=== PATIENT | female | born 1950 ===

== ENCOUNTER 2018-03-06 02:18 | Day surgery (SDC) | payer MEDICARE, BC ==
[~2018-03-06] VITALS: Ht 162.6 cm; Wt 82.1 kg
[~2018-03-06 02:18] MED LIST: ACET500T68 PO; ESOM40CA42 PO; LEVO-3 PO; OLME40TA28 PO
[2018-03-06 08:37] VITALS: BP 151/81
[2018-03-06] MEDS ORDERED: MIDAZOLAM 2 MG/2 ML VIAL IVP PRN (08:40)
[2018-03-06] MEDS ORDERED: NORMOSOL R SOLN(*) 1000 ML BAG 1,000 ML IV PRN (08:40)
[2018-03-06] MEDS ORDERED: ceFAZolin(*) 2GM/D5W 50ML 50 ML IVPB ONE (08:40)
[2018-03-06] MEDS ORDERED: LIDOCAINE/SOD BICARB 8.4% SYR ID ONE (08:40)
[2018-03-06] MEDS ORDERED: ROPIVACAINE 0.2% 400 MG/200ML 250 ML CONINFUS ONE (08:40)
[2018-03-06] MEDS ORDERED: KETAMINE HCL-NS 50 MG/5 ML SYR ONE (08:47)
[2018-03-06] MEDS ORDERED: fentaNYL CITR 100 MCG/2 ML AMP ONE ×3 (08:47→11:10)
[2018-03-06] MEDS ORDERED: LIDOCAINE MPF 1% 5 ML VIAL ONE (08:48)
[2018-03-06] MEDS ORDERED: PROPOFOL EMUL(*) 10MG/ML 20 ML 20 ML ONE (08:48)
[2018-03-06] MEDS ORDERED: DEXAMETHASONE SOD PHOS 10MG/ML ONE (08:48)
[2018-03-06] MEDS ORDERED: ONDANSETRON 4 MG/2 ML VIAL ONE (08:48)
[2018-03-06] MEDS ORDERED: BUPIV/EPI 0.25% 1:200,000 50ML INFIL ONE (08:53)
[2018-03-06] MEDS ORDERED: ROPIVACAINE 0.2% 20 ML VIAL ONE (09:08)
[2018-03-06] MEDS ORDERED: BACITRACIN OINT 15 GM TUBE TP ONE (09:08)
[2018-03-06] MEDS ORDERED: HYDROmorphone HCL 2 MG/ML SDV ONE (11:34)
--- NOTE | 2018-03-06 11:39 | OPERATIVE REPORT 1 ---
EVENT DATE: March 06, 2018 SURGEON: Shiva Awad MD BLENDING LINE ATTENDANT: Wale Garza PA-C ANESTHESIOLOGIST: Fabricio Hampton MD ANESTHESIA: General. PREOPERATIVE DIAGNOSIS Right distal tibia intraarticular fracture. POSTOPERATIVE DIAGNOSIS Right distal tibia intraarticular fracture. PROCEDURE PERFORMED Open reduction and internal fixation distal tibia fracture. ESTIMATED BLOOD LOSS Minimal. FLUIDS Minimal. DESCRIPTION OF PROCEDURE The patient was brought to the operating room and placed in supine position. A bump was placed under the right hip to align the right lower extremity. She was prepped and draped in the normal sterile fashion using Prevail. Sterile stockinettes and U-drape were placed on the lower extremity. Stockinette was incised from the above the knee and held with Coban. Esmarch was then used to exsanguinate the lower extremity and tourniquet turned up to 300 mmHg. An incision was made directly anterior lateral just in front of the syndesmosis and just superior to the ankle joint. Skin was incised down to the subcutaneous tissue. The subcutaneous tissue was bluntly dissected making sure that the lateral branch of the superficial peroneal nerve was protected, which it was. Then we bluntly dissected all the way down to the bone. At this point, I could get directly into the fracture. I was able to place a lamina head start teacher, open up the fracture, and there was a large piece, inter-middle piece that had no cartilage to it that was blocking. We were able to pull that out. From here, I opened up the fracture, cleaned out top to bottom of the fracture, going directly into the joint. I could visualize the joint. I could visualize the cartilage. I then placed a large two-point reduction clamp going from behind the peroneal tendons, making a small sharp incision, going all the way down to bone and clamping this down. Watching directly at the joint and watching the fracture site, we were able to reduce it almost anatomically. Once I had that in place, I brought in fluoroscopy, AP and lateral and found to have excellent alignment. I then placed from that same incision two screws going anterior to posterior in a lag manner using 3.5, 2.5 lag drill, both of them 38 Synthes stainless steel screws. Once we had them in, we had great compression. I took the clamp off. No change in position. I checked with fluoroscopy, AP and lateral and had excellent position of the screws, excellent position of the fracture. At this point, we then stressed the syndesmosis, found that there was absolutely no ligament laxity in the syndesmosis. Also, we stressed it medially to see if the medial malleolar fracture on CT was stable which it was completely stable once we had stabilized the tibia. Therefore, I think we left the medial malleolus alone. It was in anatomic position and felt to be extremely stable. We closed using 3-0 Monocryl and carly. Adaptic 4x4's, big bulky Tariq dressing. The patient was went to recovery with no complications. YUKI
[2018-03-06 12:28] VITALS: BP 140/83
--- NOTE | 2018-03-06 12:37 | NUR ---
1228-PT ARRIVES TO PACU FROM OR ON CART IN SF POSITION.VSS. SBAR REPORT BEDSIDE FROM BJ RN 1230-PT GIVEN JELLO TO EAT AT THIS TIME AND REQUESTS TO REST AT THIS TIME
--- NOTE | 2018-03-06 13:27 | RADIOLOGY IMAGING REPORT ---
FACILITY: [facility] PATIENT NAME: Norma Calloway : 1950 MR: [id number] V: [id number] EXAM DATE: ORDERING PHYSICIAN: FRED SCHWARZ TECHNOLOGIST: Location: [facility] Patient: Norma Calloway : 1950 Visit/Account:[id number] Date of Sevice: 03/06/2018 Exam type: C-ARM FLUORO 1 HR History: DISTAL right TIB/FIB FRACTURE Comparison: None. Findings: In AP and lateral thorascopic spot view of the ankle were submitted. There are two orthopedic scre ws traversing the anterior medial aspect of the distal right tibia. There is irregular contour to th e cortex along the medial aspect of the distal diaphysis of the right fibula which may be related to prior injury. The total fluoroscopy time was 28 seconds. The cumulative air Kerma is 0.5084 mGY IMPRESSION: 1. As above Report Dictated By: Alannah Robles MD at 03/06/2018 12:55 PM Report E-Signed By: Alannah Robles MD at 03/06/2018 1:22 PM WSN:[id number]
--- NOTE | 2018-03-06 13:33 | NUR ---
1245-pt to bedside. pt given jello and a pain pill. denies nausea at this time but expresses nervousness about getting nauseated. pt reassured and requests to sleep for a while at this time. pt given call light and left to sleep. states understanding
[2018-03-06 13:54] VITALS: BP 124/72
--- NOTE | 2018-03-06 13:57 | NUR ---
1345-PT TRAILED ON 1 LPM O2 AT THIS TIME. PT REPORTS SHE CAN "FEEL HER FOOT NOW" AND THE PAIN IS INCREASING.
--- NOTE | 2018-03-06 14:22 | NUR ---
1420-PT PLACED ON ROOM AIR AT THIS TIME. WILL CONTINUE TO MONITOR
[2018-03-06 14:54] VITALS: BP 161/87
[2018-03-06 14:59] VITALS: BP 144/88
--- NOTE | 2018-03-06 16:05 | NUR ---
1505 SBAR REPORT WAS RECEIVED FROM Kendall MARTINEZ. 1510 WENT IN TO SEE PATIENT. SHE STATED SHE WAS READY TO GO BUT WAS VERY ANXIOUS AND ABOUT LEAVING AND GOING HOME. WENT OVER SEVERAL THINGS WITH PATIENT. AFTER TALKING WITH PATIENT SHE APPEARS MORE RELAXED AND APPEARS MORE CALM ABOUT GOING HOME. 1530 IV WAS DC'D WITH CATH INTACT. PRESSURE DRESSING APPLIED. 1545 PATIENT USED THE RESTROOM BEFORE DISCHARGE. SHE WAS ABLE TO VOID WITHOUT DIFFICULTIES. 1605 PATIENT WAS DC'D. PATIENT WAS TAKEN OUT VIA WHEELCHAIR. SHE WAS ACCOMPANIED BY HER . SHE WAS ABLE TO GET INTO HER VEHICLE WITH SOME ASSISTANCE. LUNGS ARE CLEAR. SHE IS ON ROOM AIR. BOWEL SOUNDS ARE ACTIVE. CAP REFILL IS LESS THAN 3 SECONDS, TOES ARE WARM AND PINK, SHE STATES HER SENSATION IS NORMAL. UNABLE TO ASSESS PULSE. SHE IS ABLE TO WIGGLE TOES. SEE DISCHARGE ASSESSMENT.
== END 2018-03-06 12:28 | disposition home or self-care (01) ==
LOC: OR 02:18
PROVIDERS: ATTEND Orthopaedic Surgery
DX: S82.391A Other fracture of lower end of right tibia, initial encounter for closed fracture (principal)
CPT/HCPCS: 27827; 76000; 76942; A9270; J1100; J1170; J2001; J2250; J2405; J2704; J2795; J3010; J3490; J0690